=== PATIENT | female | born 1965 | race Caucasian/White ===

== ENCOUNTER → 2022-07-29 11:44 | Outpatient (BNVA) | payer OTHER, SELFPAY | PROVIDERS: PCP Nurse Practitioner Family; Visit Provider Internal Medicine Cardiovascular Disease | DX: I10 Essential (primary) hypertension (principal) | CPT/HCPCS: 93005 ==

== ENCOUNTER 2025-02-21 12:47 | Outpatient (RCR) | payer OTHER, SELFPAY | END 2025-03-14 23:59 | disposition home or self-care (01) | LOC: SPT 12:47 | PROVIDERS: Visit Provider Nurse Practitioner Family | DX: N39.41 Urge incontinence (principal); N39.3 Stress incontinence (female) (male); K59.00 Constipation, unspecified | CPT/HCPCS: 97110; 97161; 97530 ==